=== PATIENT | female | born 1990 | race Caucasian/White ===

== ENCOUNTER 2022-04-24 00:19 | Inpatient (IN) | payer BC ==
[~2022-04-24] VITALS: Ht 165.1 cm; Wt 97.7 kg
[2022-04-24] VITALS (81 sets, daily range): BP systolic 97–156; BP diastolic 50–107; PULSE 55–126; TEMP 97.3–98.7
--- NOTE | 2022-04-24 00:40 | NUR ---
0040 G1L0 41.1 WEEK GEST TO LR4 WITH C/O SROM AT 2345 AND CONTRACTIONS STARTING AT 0000. EFM ON. SVE WITH POSITIVE AMNIOTRACE. LEAKS CL FLUID. SVE /-2. ADM ASSESSMENT COMPLETED.
[2022-04-24] MEDS ORDERED: PRENATAL TABLET PO (00:43)
--- NOTE | 2022-04-24 01:50 | NUR ---
0150 IV STARTED ON THIRD TRY. ANCEF 2 GM IVP GIVEN. BECOMING UNCOMFORTABLE WITH CONTRACTIONS. READY FOR EPIDURAL. COREMAKER FLOOR NOTIFED.
[2022-04-24 01:58] LABS: BASO % 0.3 % (0.0-2.0); EOS % 0.4 % (0.0-4.0); GRAN # 5.2 K/mm3 (1.4-6.5); GRAN % 69.3 % (42.2-75.2); HEMOGLOBIN 11.8 g/dl (12.5-16.0); LYMPH # 1.5 K/mm3 (1.2-3.4); MEAN CELL VOLUME 86 fl (80.0-100.0); MEAN CORPUSCULAR HEMOGLOBIN 30 pg (27-31); MEAN CORPUSCULAR HGB CONC 34 g/dl (33.0-37.0); MEAN PLATELET VOLUME 9.4 fl (7.4-10.4); MONO # 0.7 K/mm3 (0.1-0.6); MONO % 9.5 % (1.7-9.3); PLATELET COUNT 179 K/mm3 (130-400); RED BLOOD COUNT 3.99 M/mm3 (4.10-5.30); REDCELL DISTRIBUTION WIDTH-CV 13.8 % (11.5-14.5)
[2022-04-24 02:02] LABS: HEMATOCRIT 34.3 % (37.0-47.0)
--- NOTE | 2022-04-24 02:20 | NUR ---
0220 SITTING ON SIDE OF BED FOR EPID PLACEMENT. SEE ANESTHESIA RECORDS FOR MORE INFORMATION.
--- NOTE | 2022-04-24 22:38 | NUR ---
2238 - SVE PER DR. WASHINGTON, PUSH TIMES ONE CTX. ANTERIOR LIP NOTED. POSITION CHANGE TO SU POSITION IN RESTING WITH CTX.
--- NOTE | 2022-04-24 23:42 | NUR ---
2342 LOOSE ANT RIM OF CERVIX FELT. DR WASHINGTON NOTIFIED. INSTRUCTED TO PUSH WITH PT. PT PUSHING WITH CONTRACTIONS. 0040 BECOMING VERY UNCOMFORTABLE. EPID PATIENT CONTROL BUTTON PUSHED WITH NO RELIEF. CORPORATE DEVELOPMENT INTERN NOTIFIED. STOPPED PUSHING FOR NOW. ANT RIM OF CERVIX STILL PRESENT WITH SVE. 0100 EPID DOSED PER CORPORATE DEVELOPMENT INTERN. PT NOT PUSHING. ANT RIM CERVIX REMAINS. 0110 FEELING NAUSEATED AND SICK. B/P 82/40. FHT DECEL FROM 160 TO 90'S. 0115 EPHEDRINE 10 MG IV GIVEN. 0120 B/P 116/53. FHT'S 180'S. PT REQUESTING A C/SECT. DR WASHINGTON NOTIFIED. 0125 DR WASHINGTON IN ROOM. C/SECT DISCUSED AND CALLED. ABD SHAVED AND PREPPED. 0135 EFM OFF. TO OR PER BED.
--- NOTE | 2022-04-24 23:42 | NUR ---
2342 ANT RIM OF CERVIX LEFT. CAN BE PUSHED AWAY WITH CONTRACTION. DR WASHINGTON NOTIFIED. INSTRUCTED TO HAVE PT START PUSHING WITH CONTRACTIONS.
[2022-04-25] VITALS (25 sets, daily range): BP systolic 102–154; BP diastolic 48–88; PULSE 75–155; TEMP 97.9–99.2
--- NOTE | 2022-04-25 03:30 | NUR ---
0330 - PERICARE PROVIDED, BINDER APPLIED, PT MOVED WELL IN BED.
--- NOTE | 2022-04-25 13:57 | NUR ---
Customer Supply Coordinator rounds: Customer Supply Coordinator visit attempted. Patient declined.
[2022-04-26] VITALS: BP 125/81; PULSE 85; TEMP 98
[2022-04-26 03:04] VITALS: BP 119/80; PULSE 84; TEMP 97.9
[2022-04-26 07:32] VITALS: BP 141/83; PULSE 91
[2022-04-26 17:10] VITALS: BP 131/76; PULSE 100; TEMP 98.5
--- NOTE | 2022-04-26 17:10 | NUR ---
PT AND SPOUSE WATCHING EDUCATIONAL VIDEOS AT THIS TIME.
[2022-04-26 20:30] VITALS: BP 136/78; PULSE 94; TEMP 98.7
[2022-04-27 07:59] VITALS: BP 146/85; PULSE 72; TEMP 97.8
[2022-04-27] MEDS ORDERED: ROXICODONE 55 MG/TAB PO (09:44)
[2022-04-27] MEDS ORDERED: IBU800 M1 PO (09:44)
--- NOTE | 2022-04-27 17:57 | NUR ---
143 THIS NURSE WAS GOING TO ADMINISTER THE MMR VACCINE TO THE CLIENT BEFORE DISCHARGE. AFTER COMPLETING THE QUISTINAIRE PT WAS NOT A GOOD CANDIDATE FOR THE VACCINE DUE TO SENSITIVITY TO CHICKEN EGGS. VACCINE NOT ADMINISTERED.
== END 2022-04-27 14:50 | disposition home or self-care (01) | DRG 788 ==
LOC: LDRO 00:19 → LDR 01:15 → OB 01:15
PROVIDERS: ADMIT Obstetrics & Gynecology
PROC: 10D00Z1 Extraction of Products of Conception, Low, Open Approach (ICD-10-PCS; principal; 2022-04-25)
DX: O48.0 Post-term pregnancy (principal); Z3A.41 41 weeks gestation of pregnancy; O99.824 Streptococcus B carrier state complicating childbirth; O99.344 Other mental disorders complicating childbirth; F41.3 Other mixed anxiety disorders; F32.A Depression, unspecified; O26.53 Maternal hypotension syndrome, third trimester; O32.4XX0 Maternal care for high head at term, not applicable or unspecified; Z37.0 Single live birth; Z88.0 Allergy status to penicillin; Z88.5 Allergy status to narcotic agent
CPT/HCPCS: J0171; J0690; J1885; J2175; J2250; J2370; J2405; J2590; J7120